=== PATIENT | male | born 1995 | race Caucasian/White ===

== ENCOUNTER 2022-05-04 09:21 | Emergency (ER) | payer BC, OTHER ==
[2022-05-04 09:27] VITALS: BP 158/98; PULSE 89; RESP 18; TEMP 97.7
--- NOTE | 2022-05-04 09:37 | ED ---
Lower Extremity Injury HPI - General Chief Complaint: Extremity Injury, Lower Stated Complaint: lt foot injury Time Seen by Provider: 05/04/22 09:28 Source: patient, RN notes reviewed Mode of arrival: ambulatory Limitations: no limitations - History of Present Illness Initial Comments: Patient is a 27 year old male presenting to the ER with a chief complaint of ankle/foot pain. Patient slipped on ice while exiting an ambulance at work and he felt a pop in his ankle. He felt immediate pain after incident. He endorses associated tenderness to the lateral aspect of foot and 10/10 pain with plantar flexion of the ankle. Patient denies numbness or tingling in extremity. Denies any pain medication. - Related Data Previous Rx's Medication Instructions Recorded LORazepam [Ativan] 0.5 mg PO TID PRN #9 tab 03/08/15 Allergies Allergy/AdvReac Type Severity Reaction Status Date / Time No Known Allergies Allergy Verified 05/04/22 09:27 Review of Systems ROS Statement: Those systems with pertinent positive or pertinent negative responses have been documented in the HPI. ROS Other: All systems not noted in ROS Statement are negative. Past Medical History Past Medical History: No Reported History, Hypertension History of Any Multi-Drug Resistant Organisms: None Reported Past Surgical History: No Surgical Hx Reported Past Psychological History: No Psychological Hx Reported Smoking Status: Never smoker Past Alcohol Use History: None Reported, Occasional Past Drug Use History: None Reported General Exam Limitations: no limitations General appearance: alert, in no apparent distress Extremities exam: Present: full ROM, tenderness (left lateral mallelous and along fifth metartsal ), normal capillary refill, other (swelling to left lateral malleolous ). Absent: pedal edema, joint swelling, calf tenderness Neurological exam: Present: alert, oriented X3, CN II-XII intact Psychiatric exam: Present: normal affect, normal mood Course Vital Signs 05/04/22 09:23 Temperature 97.7 F Pulse Rate 89 Respiratory 18 Rate Blood Pressure 158/98 O2 Sat by Pulse 97 Oximetry Medical Decision Making - Medical Decision Making X-rays negative for acute fracture. Patient has for ankle sprain. Patient will be discharged in stable condition return parameters were discussed. Disposition Clinical Impression: Left ankle sprain Disposition: HOME SELF-CARE Condition: Stable Instructions (If sedation given, give patient instructions): Ankle Sprain (ED) Additional Instructions: Please return to the Emergency Department if symptoms worsen or any other concerns. Is patient prescribed a controlled substance at d/c from ED?: No Referrals: Alexander Linder MD [Primary Care Provider] - 1-2 days Time of Disposition: 10:02
--- NOTE | 2022-05-04 09:51 | XR ---
EXAMINATION TYPE: XR ankle complete 3 views LT, XR foot complete 3 views LT DATE OF EXAM: 05/04/2022 Comparison: None Clinical History: 27-year-old male pain after slip and fall Findings: Ankle: Ankle mortise is congruent with preservation of the distal tibiofibular overlap. Talar dome is intact . Subtalar joint alignment appears normal delineation to the Achilles tendon. No acute fracture, subl uxation, dislocation. Foot: There appears to be some dorsal hindfoot soft tissue swelling. There is a bipartite tibial sesamoid i ncidentally noted. No acute fracture, subluxation, or dislocation. Impression (left ankle and foot): Some dorsal hindfoot soft tissue swelling may reflect a capsular sprain along the midfoot or talonavi cular joint. No acute osseous abnormality seen.
== END 2022-05-04 10:23 | disposition home or self-care (01) ==
LOC: EC 09:21
DX: S93.402A Sprain of unspecified ligament of left ankle, initial encounter (principal); X58.XXXA Exposure to other specified factors, initial encounter
CPT/HCPCS: 99283